=== PATIENT | female | born 1990 | race African-American/Black ===

== ENCOUNTER 2021-05-17 17:47 | Emergency (ER) | payer OTHER, SELFPAY ==
[2021-05-17 18:00] VITALS: BP 130/71; PULSE 90; RESP 14; TEMP 36.6; O2SAT 100
--- NOTE | 2021-05-17 18:03 | ED.URI ---
HPI - URI/Sore Throat General Chief Complaint: Upper Respiratory Infection Stated Complaint: Cough/Chest Congestion Time Seen by Provider: 05/17/21 18:03 Source: patient and RN notes reviewed Mode of arrival: ambulatory Limitations: no limitations History of Present Illness HPI Narrative: Nancy 50-year-old patient who ambulated into the [facility]. Patient states she has a 1-1/2-day history of cough and a chest hurting for 2 days worse when she takes a deep breath. She has been taking aspirin at home. She also complains of nasal congestion and postnasal drainage. MD elicited complaint: cough Related Data Home Medications Medication Instructions Recorded Confirmed bupropion HCl 150 mg PO DAILY 05/17/21 05/17/21 buspirone 30 mg PO DAILY 05/17/21 05/17/21 escitalopram oxalate 20 mg PO DAILY 05/17/21 05/17/21 Allergies Allergy/AdvReac Type Severity Reaction Status Date / Time lactose Allergy Abdominal Verified 05/17/21 18:15 Pain Review of Systems Review of Systems: CONSTITUTIONAL: Denies body aches, fever, chills, or sweats. EYES: Denies visual changes, redness, or discharge. ENT: Denies rhinorrhea, + congestion, denies sore throat, or otalgia. CARDIOVASCULAR: Denies chest pain, palpitations, or edema. RESPIRATORY: + cough or dyspnea. GASTROINTESTINAL: Denies abdominal pain, nausea, vomiting, or diarrhea. GENITOURINARY: Denies dysuria or hematuria. SKIN: Denies rash, itching, or wounds. MUSCULOSKELETAL: Denies back pain, joint pain, or myalgia. NEUROLOGIC: Denies headache, numbness, tingling, or weakness. PSYCH: Denies depression or anxiety. All systems reviewed & are unremarkable except as noted in HPI and below PMFSH Comments At time of signature, I have reviewed and agree with nursing past medical, surgical, social and family history unless otherwise noted. Please see nursing chart for further information. There is no relevant family history pertinent to the presenting complaint Exam Narrative: GENERAL: Well-appearing, well-nourished, and in no acute distress. HEAD: Normocephalic, atraumatic. EYES: EOMI. No redness or drainage. Conjunctivae normal. ENT: Mucous membranes pink and moist. Nasal membranes are erythemic with clear rhinorrhea. Tympanic membranes are dull with minimal fluid and minimal bulging. Posterior pharynx is erythematous without exudate. 2-3+ tonsils without exudate. Uvula midline. NECK: Normal AROM. Supple. No lymphadenopathy. CHEST: No respiratory distress. Clear to auscultation; harsh hacking cough noted HEART: Regular rate and rhythm. No murmur appreciated. Normal peripheral pulses. MUSCULOSKELETAL: No bony tenderness. EXTREMITIES: Normal range of motion. No edema. SKIN: Warm, dry, no rash. Capillary refill normal. Normal skin turgor. NEURO: No focal deficits. Alert and oriented x3. Gait steady. PSYCH: Normal affect. No signs of depression or anxiety. Course Vital Signs Vital signs: Reviewed MDM - URI/Sore Throat MDM Narrative Medical decision making narrative: Patient has an upper respiratory infection. Patient has only had symptoms for the last 2 days. She has a harsh hacking cough increased pain with inspiration. Lungs are clear bilaterally. Patient has a long history of depression and anxiety and does not do well with prednisone. Patient will be discharged with an albuterol inhaler 1 to 2 puffs every 4-6 hours. Patient will be given Tessalon Perles. Patient is to take Claritin or Zyrtec-D daily. Patient to follow-up with her primary care provider in 3 to 5 days for follow-up for continued symptoms or no improvement. Patient was instructed to go to the ER for severe crushing chest pain or severe shortness of breath. Differential Diagnosis Differential diagnosis: Likely upper respiratory infection, otitis media, influenza and pharyngitis Medical Records Attestation: I reviewed the patient's medical records. Critical Care Time Critical Care Time Critical Care Ti
== END 2021-05-17 18:27 | disposition home or self-care (01) ==
PROVIDERS: Emergency Provider Nurse Practitioner Family
DX: J06.9 Acute upper respiratory infection, unspecified (principal); Z86.16 Personal history of COVID-19; F41.9 Anxiety disorder, unspecified; F32.A Depression, unspecified
CPT/HCPCS: 99213; G0463